=== PATIENT | male | born 2005 | race Caucasian/White ===

== ENCOUNTER 2024-05-14 10:31 | Emergency (ER) | payer OTHER ==
[~2024-05-14] VITALS: Ht 180.3 cm; Wt 72.7 kg
[2024-05-14 10:32] VITALS: BP 133/76; TEMP 98.6; O2SAT 96
== END 2024-05-14 11:51 | disposition home or self-care (01) ==
LOC: M ED 10:31
DX: S99.912A Unspecified injury of left ankle, initial encounter (principal); M93.272 Osteochondritis dissecans, left ankle and joints of left foot; V93.33XA Fall on board other powered watercraft, initial encounter; F17.200 Nicotine dependence, unspecified, uncomplicated; F10.10 Alcohol abuse, uncomplicated; Y92.89 Other specified places as the place of occurrence of the external cause; Y93.19 Activity, other involving water and watercraft; Y99.9 Unspecified external cause status